=== PATIENT | male | born 1955 | race Caucasian/White ===

== ENCOUNTER 2021-07-19 17:35 | Inpatient (IN) | payer OTHER ==
[~2021-07-19] VITALS: Ht 180.3 cm; Wt 157.4 kg
[~2021-07-19 17:35] MED LIST: ACET-10509 PO; CARV25TA PO; IBUP-81 PO; [UNRECOGNIZED DRUG - CODE] PO
[2021-07-19 17:46] VITALS: BP 143/95
--- NOTE | 2021-07-19 17:55 | NUR ---
PATIENT ASSISTED TO BED 09 WITH HOME WHEELCHAIR.
--- NOTE | 2021-07-19 18:02 | NUR ---
WALKED BLOOD SAMPLES TO LAB
--- NOTE | 2021-07-19 18:17 | NUR ---
DR BROWN AT BEDSIDE EVALUATING PT
[2021-07-19] MEDS ORDERED: ASPI-1822 PO (18:33)
[2021-07-19] MEDS ORDERED: ATOR20TA PO (18:33)
[2021-07-19] MEDS ORDERED: FEBU40TA PO (18:33)
--- NOTE | 2021-07-19 18:44 | NUR ---
Kaylee arita in ED - 07/19/21 at 1845 by MNAGNESMD UPDATED MEDS AND HISTORY OF PT
[2021-07-19] MEDS ORDERED: NACL 0.9% 1,000 ML IV ONE (18:45)
--- NOTE | 2021-07-19 18:45 | NUR ---
UPDATED MEDS AND HISTORY OF PT, GOUT, HIGH CHOLESTEROL, PRE-DIABETES, HYPERTENSION
[2021-07-19] MEDS ORDERED: cefTRIAXone 1,000 MG VIAL ONE (18:50)
--- NOTE | 2021-07-19 18:53 | NUR ---
BEAR ZUNIGA SWAB COLLECTED, WALKED TO LAB AND HANDED TO CPT. MATHIEU
[2021-07-19 19:18] LABS: BASOPHILS % (AUTO) 0.7 % (0.0-2.0); EOSINOPHILS # (AUTO) 0.1 K/uL (0-0.4); EOSINOPHILS % (AUTO) 1.8 % (0.0-4.0); HEMOGLOBIN 14.1 g/dL (12.0-18.0); LYMPHOCYTES # (AUTO) 1.7 K/uL (2.0-11.5); LYMPHOCYTES % (AUTO) 26.4 % (20.5-51.1); MEAN CORPUSCULAR HEMOGLOBIN 29 pg (27-31); MEAN CORPUSCULAR HGB CONC 34 g/dL (33-37); MEAN CORPUSCULAR VOLUME 87.7 fL (80-94); MONOCYTES # (AUTO) 0.7 K/uL (0.8-1.0); MONOCYTES % (AUTO) 10.5 % (1.7-9.3); NEUTROPHILS % (AUTO) 60.6 % (42.2-75.2); PLATELET COUNT (AUTO) 164 K/uL (140-450); RED BLOOD CELL COUNT(AUTO) 4.79 MIL/uL (4.20-6.10); WHITE BLOOD COUNT (AUTO) 6.6 K/uL (4.8-10.8)
--- NOTE | 2021-07-19 19:22 | NUR ---
REPORT AND TRANSFER OF CARE ENDORSED TO TEENA WILLIS.
[2021-07-19 19:40] LABS: ALBUMIN 3.2 g/dL (3.4-5.0); ANION GAP 11.6 (8-16); CARBON DIOXIDE 25.4 mmol/L (21-32); CREATININE 2.2 mg/dL (0.6-1.3); TOTAL BILIRUBIN 0.7 mg/dL (0.0-1.0)
--- NOTE | 2021-07-19 21:50 | NUR ---
Patient will be admitted to care of DR LUZ. Admited to Med/Surg. Will go to room 116. Belongings list completed. Report to TEENA COKER.
[2021-07-19 22:00] VITALS: BP 170/77
--- NOTE | 2021-07-19 22:00 | NUR ---
GET REPORT FROM ER NURSE LAZARO, PATIENT IS ALERT AND ORIENTED X4, NO ANY COMPLAIN OF SHORTNESS OF BREATH NOTED, CALL LIGHT IS WITHIN THE REACH WILL CONTINUE TO MONITOR PATIENT.
[2021-07-19] MEDS ORDERED: PIPERACILLIN/TAZOBACTAM 3.375 GM VIAL IV ONE (22:27)
[2021-07-19] MEDS: PIPERACILLIN/TAZOBACTAM 3.375 GM in DEXTROSE 5% 50 ML IV SCH (22:51)
--- NOTE | 2021-07-20 01:30 | NUR ---
PATIENT IS LYING ON BED , PATIENT BP : 172/61. OK : 67, MASSAGED DR SUKH FERNANDEZ PT BLOOD PRESSURE MEDS , WAITING FOR DR VELAZQUEZ, CALL LIGHT IS WITHIN THE REACH ,WILL CONTINUE TO MONITOR PATIENT.
--- NOTE | 2021-07-20 02:30 | NUR ---
ASSESS/ MEASURE WOUND DRESSING CHANGED WITH NURSE LAVINIA,
--- NOTE | 2021-07-20 02:53 | NUR ---
RE CHECKED PATIENT BLOOD PRESSURE IS 166/68. MO: 88. MASSAGED DOCTOR AGAIN WAITING FOR DOCTOR RESPONSE , PATIENT IS ALERT AND ORIENTED, NO ANY COMPLAIN OF CHEST PAIN OR SHORTNESS OF BREATH AT THIS TIME. CALL LIGHT IS WITHIN THE REACH WILL CONTINUE TO MONITOR.
[2021-07-20 04:00] VITALS: BP 151/74
[2021-07-20] MEDS ORDERED: PIPERACILLIN/TAZOBACTAM 3.375 GM VIAL IV ONE (04:08)
--- NOTE | 2021-07-20 04:21 | NUR ---
PATIENT IS LYING ON BED , NO ANY COMPLAIN OF SOB AT THIS TIME , BP: 151/77. PA: 74 , STILL WAITING FOR DR RESPONSE ABOUT PAIN MEDS AND BLOOD PRESSURE MEDS , CALL LIGHT IS WITHIN THE REACH ,WILL CONTINUE TO MONITOR PATIENT.
[2021-07-20] MEDS: PIPERACILLIN/TAZOBACTAM 3.375 GM in DEXTROSE 5% 50 ML IV SCH ×3 (04:33→23:08)
[2021-07-20] MEDS: HYDROcodone/APAP 5/325 MG 1 TAB TAB PO PRN ×2 (06:32→12:41)
--- NOTE | 2021-07-20 06:36 | NUR ---
PATIENT IS COMPLAINING OF PAIN 6/10 AT RIGHT KNEE, NORCO 5/325 MG PRN FOR MODERATE PAIN IS GIVEN PER DR ORDER , WILL RE ASSESS PAIN LAVAL, CALL LIGHT IS WITHIN THE REACH ,WILL CONTINUE TO MONITOR PATIENT.
--- NOTE | 2021-07-20 07:32 | NUR ---
GAVE REPORT TO MORNING NURSE SIMON, PATIENT IS STABLE.
--- NOTE | 2021-07-20 07:33 | NUR ---
RECEIVED REPORT FROM DIVISION CHIEF NURSE FOR CONTINUITY OF CARE. PT IS IN BED SLEEPING AT THIS TIME. RESPIRATIONS ARE EVEN AND UNLABORED ON ROOM AIR. NO SIGNS OF DISTRESS NOTED. ABD IS NONTENDER, NONDISTENDED WITH BOWEL SOUNDS PRESENT. PT HAS IV TO R AC 18G SALINE LOCK. CALL LIGHT WITHIN REACH. ALL SAFETY MEASURES IN PLACE. WILL CONTINUE TO MONITOR.
[2021-07-20 08:00] VITALS: BP 143/72
--- NOTE | 2021-07-20 08:17 | NUR ---
PATIENT HAS BEEN SCREENED AND CATEGORIZED HIGH NUTRITION RISK. PATIENT WILL BE SEEN WITHIN 1-2 DAYS OF ADMISSION. / RECEIVED CONSULT FOR PRESSURE INJURY PASCALE [address]
--- NOTE | 2021-07-20 10:50 | NUR ---
PT. REFUSES WOUND CARE CONSULT. PER PT." AGAIN? DOCTOR JUST PUT THE DRESSING." RLE DRESSING DRY CLEAN AND WILL CONTINUE TO FOLLOW PODIATRY'S ORDER.
--- NOTE | 2021-07-20 11:03 | NUR ---
DID ROUNDS ON PT. PT IN BED RESTING AT THIS TIME. RESPIRATIONS ARE EVEN AND UNLABORED. NO SIGNS OF DISTRESS NOTED. WILL CONTINUE TO MONITOR.
--- NOTE | 2021-07-20 12:14 | NUR ---
DC PLANNING: THE PATIENT PRESENTED FROM HOME TO THE ED WITH C/O RLE PAIN AND LESIONS X 2 DAYS. H/O HTN, PREDIABETES AND CKD. ORDERS FOR ID AND SRG CONSULT, ROCEPHIN AND ZYVOX IV. CM SPOKE WITH THE PATIENT AT BEDSIDE AND CONFIRMED HIS ADDRESS AND PHONE NUMBER. HE IS WC CONFINED AND IS ASSISTED WITH EVERYTHING INCLUDING TRANSPORT BY HIS SISTER AURA WHO IS ALSO HIS [facility] WORKER. HE LIVES IN AN APARTMENT WITH HIS MOTHER AND SISTER AND HAS DME OF WC, FWW AND 3 IN 1. HE HAS BEEN WC BOUND FOR ABOUT 7 YEARS AND HAD HOME HEALTH ABOUT 2YEARS AGO. HE HAS BEEN AT [facility] AND ANOTHER SNF IN [place] THAT HE CAN'T REMEMBER THE NAME OF. HE DID NOT WANT ME TO CALL HIS SISTER AURA TO GET MORE DETAILS HE WAS VERY SLEEPY. HE IS NOT WILLING TO GO TO A SNF UPON DISCHARGE BUT IS OK WITH HOME HEALTH. KHALIDA WILL FOLLOW. Addendum: 07/20/21 at 1225 by Viridiana Mg CM Amended: Links added. Addendum: 07/22/21 at 1156 by Viridiana Mg CM DC PLANNING: KHALIDA SPOKE WITH THE PATIENT AT BEDSIDE REGARDING POTENTIAL SNF PLACEMENT FOR IV ABX AND WOUND CARE, PATIENT NOW STATES HE'S IN AGREEMENT WITH GOING TO SNF AND ASKED THAT CM SPEAK WITH HIS SISTER/CAREGIVER AURA. CM SPOKE WITH AURA BY PHONE, ASKED THAT PATIENT BE REFERRED TO [facility]. CLINICAL PACKET SENT TO [facility], CM MET WITH PATIENT AT BEDSIDE AND REVIEWED THE IMPORTANT MESSAGE FROM MEDICARE. PATIENT SIGNED THE FORM, COPY GIVEN TO PATIENT, ORIGINAL PLACED IN CHART. KHALIDA WILL FOLLOW. Addendum: 07/22/21 at 1434 by Viridiana Mg CM DC PLANNING: PATIENT ACCEPTED TO [facility], ROOM 39A, DR ERNST TO FOLLOW. HE WILL BE PICKED UP TOMORROW, 07/23 AT 1600 BY [facility] ([phone]). NUMBER TO CALL REPORT IS [phone]. KHALIDA SPOKE WITH THE PATIENT AT BEDSIDE TO LET HIM KNOW AND ALSO SPOKE WITH HIS SISTER AURA. KHALIDA WILL FOLLOW.
[2021-07-20] MEDS ORDERED: hydrALAZINE 20 MG/ML VIAL IVP PRN (13:35)
--- NOTE | 2021-07-20 13:38 | NUR ---
07/20/21 RD INITIAL ASSESSMENT COMPLETED PLEASE REFER TO NUTRITION ASSESSMENT UNDER CARE ACTIVITY FOR ESTIMATED NUTRITIONAL NEEDS. [facility]. [facility] TOL[facility] 2. RECOMMEND [place] BID PER RD PROTOCOL 3. RD TO FOLLOW-UP 3-5 DAYS, MODERATE RISK PASCALE [address]
--- NOTE | 2021-07-20 14:12 | NUR ---
IV ANTIBIOTIC ADMINISTERED BY TEENA CHAUDHARY. WILL CONTINUE TO MONITOR.
[2021-07-20 16:00] VITALS: BP 147/84
--- NOTE | 2021-07-20 17:12 | NUR ---
ASSISTED PT WITH URINAL USAGE AND REPOSITIONING. WILL CONTINUE TO MONITOR.
--- NOTE | 2021-07-20 19:02 | NUR ---
ENDORSED PT TO WALLPAPERER NURSE FOR CONTINUITY OF CARE. ALL NEEDS MET THROUGHOUT SHIFT. PT IS STABLE.
--- NOTE | 2021-07-20 19:35 | NUR ---
RECEIVED PT FROM AM NURSE FOR CONTINUITY OF CARE. PT IS STABLE
[2021-07-20] MEDS: carvediloL 12.5 MG TAB PO SCH (21:00)
--- NOTE | 2021-07-21 | NUR ---
RAC IV CAME OFF, INSERTED NEW IV ON LEFT HAND 22G,TOLERATED WELL.
[2021-07-21] MEDS ORDERED: VANCOMYCIN PER PHARMACY MC PRN (01:20)
[2021-07-21] MEDS ORDERED: VANCOMYCIN 1GM/DEXT 5% PREMIX 400 ML IV SCH (01:35)
[2021-07-21] MEDS: HYDROcodone/APAP 5/325 MG 1 TAB TAB PO PRN ×3 (02:29→20:56)
--- NOTE | 2021-07-21 03:00 | NUR ---
PATIENT ASLEEP,RESPIRATIONS EVEN AND UNLABORED,NO DISTRESS NOTED.
--- NOTE | 2021-07-21 03:34 | NUR ---
RECEIVED BEDSIDE REPORT FROM DAY SHIFT NURSE FOR CONTINUITY OF PATIENT CARE.
[2021-07-21 04:00] VITALS: BP 138/76
--- NOTE | 2021-07-21 06:06 | NUR ---
ASSISTED PT TO BATHROOMAND BACK TO BED, NO PAIN OR SOB NOTED.
[2021-07-21 07:09] LABS: ANION GAP 13.8 (8-16); CREATININE 2.1 mg/dL (0.6-1.3); POTASSIUM 3.8 mmol/L (3.5-5.1)
[2021-07-21 07:12] LABS: BASOPHILS % (AUTO) 0.5 % (0.0-2.0); EOSINOPHILS # (AUTO) 0.1 K/uL (0-0.4); EOSINOPHILS % (AUTO) 1.5 % (0.0-4.0); HEMATOCRIT 41.3 % (36-52); HEMOGLOBIN 13.9 g/dL (12.0-18.0); LYMPHOCYTES # (AUTO) 1.5 K/uL (2.0-11.5); LYMPHOCYTES % (AUTO) 22.2 % (20.5-51.1); MEAN CORPUSCULAR HEMOGLOBIN 30 pg (27-31); MEAN CORPUSCULAR HGB CONC 34 g/dL (33-37); MEAN CORPUSCULAR VOLUME 87.5 fL (80-94); MONOCYTES # (AUTO) 0.7 K/uL (0.8-1.0); MONOCYTES % (AUTO) 10.3 % (1.7-9.3); NEUTROPHILS # (AUTO) 4.5 K/uL (1.8-7.7); NEUTROPHILS % (AUTO) 65.5 % (42.2-75.2); PLATELET COUNT (AUTO) 168 K/uL (140-450); RED BLOOD CELL COUNT(AUTO) 4.72 MIL/uL (4.20-6.10); RED CELL DISTRIBUTION WIDTH 15.1 % (11.6-13.7); WHITE BLOOD COUNT (AUTO) 6.9 K/uL (4.8-10.8)
[2021-07-21 07:23] LABS: MAGNESIUM 1.8 mg/dL (1.8-2.4); PHOSPHORUS 2.4 mg/dL (2.5-4.9)
--- NOTE | 2021-07-21 07:31 | NUR ---
ENDORSED PT TO AM NURSE FOR CONTINUITY OF CARE.PT IS STABLE
--- NOTE | 2021-07-21 07:32 | NUR ---
RECEIVED REPORT FROM BUSINESS UNIT DIRECTOR NURSE FOR CONTINUITY OF CARE. PT IS IN BED SLEEPING AT THIS TIME. RESPIRATIONS ARE EVEN AND UNLABORED ON ROOM AIR. NO SIGNS OF DISTRESS NOTED. PT IS ON CCHO DIET, ABD IS NONTENDER, NONDISTENDED WITH BOWEL SOUNDS PRESENT. PT HAS IV TO L HAND 22G SALINE LOCK. CALL LIGHT WITHIN REACH. ALL SAFETY MEASURES IN PLACE. WILL CONTINUE TO MONITOR.
[2021-07-21 08:00] VITALS: BP 112/64
[2021-07-21] MEDS: VANCOMYCIN 1,000 MG in DEXTROSE 5% 250 ML IV SCH ×2 (09:00→20:29)
[2021-07-21] MEDS: carvediloL 12.5 MG TAB PO SCH ×2 (09:19→20:29)
--- NOTE | 2021-07-21 09:20 | NUR ---
ADMINISTERED ALL SCHEDULED MEDICATIONS. EDUCATED PT ON MEDS ADMINISTERED. PT VERBALIZED UNDERSTANDING. WILL CONTINUE TO MONITOR.
--- NOTE | 2021-07-21 12:37 | NUR ---
PT STATES IV WAS ACCIDENTALLY PULLED OUT. WILL ATTEMPT NEW IV ACCESS. WILL CONTINUE TO MONITOR.
--- NOTE | 2021-07-21 13:12 | NUR ---
URINE SPECIMEN COLLECTED. SENT TO LAB.
--- NOTE | 2021-07-21 14:45 | NUR ---
ENDORSED PT TO TEENA YUNG FOR CONTINUITY OF CARE.
--- NOTE | 2021-07-21 15:41 | NUR ---
DC PLANNING PATIENT IS A 65-YEAR-OLD MALE ADMITTED ON 07/19/2021 AT [facility] DUE TO WORSENING IN DRAINAGE AND SWELLING OF RLE WOUNDS. PATIENT HAS HX. OF CHRONIC KIDNEY DISEASE, AND PRE-DIABETIC. SW MET WITH PATIENT AT BEDSIDE TO DISCUSS AND GATHER PATIENT'S COLLATERAL INFORMATION. PATIENT REPORTED LIVING AT HOME WITH HIS AND STATED HAVING PLENTY OF SUPPORT FROM HER FAMILY. PATIENT REPORTED HAVING ASSISTANCE AT HOME AND THAT HIS SISTER IS HIS IHSS CAREGIVER SINCE HE IS UNABLE TO WALK AND BE INDEPENDENT AT HOME. PATIENT REPORTED NOT HAVING ADVANCE DIRECTIVES AND WAS NOT INTERESTED ON GETTING INFORMATION PACKET PROVIDED BY SW AT THE TIME OF VISIT. PATIENT REPORTED HAVING A WHEELCHAIR AND A WALKER AT HOME HIS ONLY DME AND NOT HAVING ANY ISSUES WITH GETTING OR TAKING ANY MEDICATIONS. SW EXPLAINED TO PATIENT THE NEED TO FOLLOW UP WITH AN APPOINTMENT WITHIN 5-7 DAYS WITH PCP AFTER DC, PATIENT AGREED AND STATED THAT HIS SISTER AURA WILL BE MAKING HIS APPOINMENT FOR THE FOLLOW UP. PATIENT STATED THAT HIS SISTER WILL BE ASSISTING HIM WITH TRANSPORTATION BACK HOME WHEN HE IS READY FOR DISCHARGE. SW WILL FOLLOW UP WITH PATIENT NEEDED.
[2021-07-21 15:47] LABS: APPEARANCE,URINE CLEAR (CLEAR); BILIRUBIN,URINE 1+ (NEGATIVE); BLOOD, URINE NEGATIVE (NEGATIVE); LEUKOCYTE ESTERASE ,URINE NEGATIVE (NEGATIVE); NITRITE, URINE NEGATIVE (NEGATIVE); UGLUCOSE NEGATIVE (NEGATIVE)
[2021-07-21 15:53] LABS: COLOR,URINE AMBER (YELLOW)
[2021-07-21 16:00] VITALS: BP 154/76
--- NOTE | 2021-07-21 20:56 | NUR ---
PT TOOK HIS PM MEDS DIRECTED. PT COMPLAINT OF MODERATE PAIN 6/10. ON RIGHT LEG AND REQUEST FOR PAIN PILL. PAIN PILL ADMINISTERED ORDERED.
--- NOTE | 2021-07-21 21:10 | NUR ---
PATIENT'S SISTER, AURA, CALLED TO ASK ABOUT PATIENT. SHE WANTS TO TALK TO DOCTOR. AURA IS ALSO CAREGIVER FOR PATIENT. AURA ALMANZA, PH # [phone]. PATIENT REQUESTED TO CALL HER WHEN MD VISIT PATIENT.
--- NOTE | 2021-07-21 22:00 | NUR ---
PT'S ASLEEP, NO COMPLAINT OF PAIN.
[2021-07-22] VITALS: BP_SYST 127
--- NOTE | 2021-07-22 03:57 | NUR ---
PATIENT IS SLEEPING WELL, IV ON LEFT ARM IS INTACT AND PATENT.
[2021-07-22 07:10] LABS: BASOPHILS % (AUTO) 0.6 % (0.0-2.0); EOSINOPHILS # (AUTO) 0.2 K/uL (0-0.4); EOSINOPHILS % (AUTO) 3.1 % (0.0-4.0); HEMATOCRIT 39.6 % (36-52); HEMOGLOBIN 13.2 g/dL (12.0-18.0); LYMPHOCYTES # (AUTO) 1.5 K/uL (2.0-11.5); LYMPHOCYTES % (AUTO) 23.2 % (20.5-51.1); MEAN CORPUSCULAR HEMOGLOBIN 29 pg (27-31); MEAN CORPUSCULAR HGB CONC 33 g/dL (33-37); MEAN CORPUSCULAR VOLUME 87.8 fL (80-94); MONOCYTES # (AUTO) 0.7 K/uL (0.8-1.0); MONOCYTES % (AUTO) 10.4 % (1.7-9.3); NEUTROPHILS # (AUTO) 4.1 K/uL (1.8-7.7); NEUTROPHILS % (AUTO) 62.7 % (42.2-75.2); PLATELET COUNT (AUTO) 154 K/uL (140-450); RED BLOOD CELL COUNT(AUTO) 4.51 MIL/uL (4.20-6.10); RED CELL DISTRIBUTION WIDTH 14.7 % (11.6-13.7); WHITE BLOOD COUNT (AUTO) 6.5 K/uL (4.8-10.8)
--- NOTE | 2021-07-22 07:15 | NUR ---
ENDORSE PATIENT TO DAY SHIFT NURSE, AGA, FOR CONTINUITY OF CARE.
[2021-07-22 07:39] LABS: MAGNESIUM 1.8 mg/dL (1.8-2.4); PHOSPHORUS 2.9 mg/dL (2.5-4.9)
[2021-07-22 07:57] LABS: ANION GAP 12.7 (8-16); CARBON DIOXIDE 26.1 mmol/L (21-32); CREATININE 2.1 mg/dL (0.6-1.3); POTASSIUM 3.8 mmol/L (3.5-5.1)
[2021-07-22] MEDS: carvediloL 12.5 MG TAB PO SCH ×2 (08:15→20:24)
[2021-07-22] MEDS: FUROSEMIDE 40 MG/4 ML VIAL IVP SCH (09:41)
[2021-07-22] MEDS: VANCOMYCIN 1,000 MG in DEXTROSE 5% 250 ML IV SCH ×2 (09:41→20:27)
[2021-07-22 10:26] VITALS: BP 160/72
[2021-07-22 16:21] VITALS: BP 129/62
[2021-07-23] VITALS: BP 137/68
--- NOTE | 2021-07-23 01:45 | NUR ---
IV SITE ON LEFT FOREARM DISLODGED AND LEAKING, PT COMPLAIN OF PAIN WHEN FLUSHED. DISCONTINUE IV HEPLOCK ON LEFT FOREARM. INSERTED A NEW IV SITE ON RIGHT INNER WRIST WITH GOOD BLOOD RETURN. PATIENT DENIED OF PAIN. -MNUREE
[2021-07-23] MEDS: HYDROcodone/APAP 5/325 MG 1 TAB TAB PO PRN (01:48)
--- NOTE | 2021-07-23 01:48 | NUR ---
PT COMPLAINTS OF SHARP PAIN ON BILATERAL LOWER EXTREMITIES OF 5/10. PAIN MEDICATION ADMINISTERED ORDER.
[2021-07-23] MEDS ORDERED: ceFAZolin 1,000 MG VIAL ONE (04:09)
--- NOTE | 2021-07-23 07:20 | NUR ---
RECEIVED REPORT FROM RETURNER NURSE FOR CONTINUITY OF CARE. PT SITTING ON THE EDGE OF THE BED, AWAKE. BREATHING SYMMETRICAL ON ROOM AIR. NOTED WITH DRESSING ON RIGHT LEG, NO NOTED BLEEDING OR DRAINAGE AT THIS TIME. WITH RFA 20G ON SALINE LOCK. CALL LIGHT WITHIN REACH. ALL SAFETY MEASURES IN PLACE.
--- NOTE | 2021-07-23 07:24 | NUR ---
PT IS AWAKE, ALERT AND RESPONSIVE. IS STABLE. ENDORSED TO DAY SHIFT NURSE FOR CONTINUITY OF CARE. - MNUREE
[2021-07-23 08:00] VITALS: BP 155/79
[2021-07-23] MEDS: carvediloL 12.5 MG TAB PO SCH (09:07)
[2021-07-23] MEDS: FUROSEMIDE 40 MG/4 ML VIAL IVP SCH (09:08)
--- NOTE | 2021-07-23 09:29 | NUR ---
SCHEDULED AM MEDICATIONS GIVEN ORDERED.
[2021-07-23] MEDS ORDERED: ANCEF IV (09:42)
[2021-07-23] MEDS ORDERED: FURO-570 PO (09:42)
[2021-07-23] MEDS ORDERED: ATOR20TA PO (09:42)
--- NOTE | 2021-07-23 11:57 | NUR ---
PT AWAKE IN BED, ALERT. BREATHING SYMMETRICAL ON ROOM AIR. DRESSING ON RIGHT LE CHANGED NOTED WITH SEROSANGUINOUS DRAINAGE IN SMALL AMOUNT, PICTURES TAKEN. AFTERWARDS ASSISTED PT TO THE RESTROOM, PT AMBULATING USING WALKER WITH ASSIST. CALL LIGHT WITHIN REACH. ALL SAFETY MEASURES IN PLACE
--- NOTE | 2021-07-23 12:56 | NUR ---
PT FOR [place] [facility] CALLED AND LEFT MESSAGE TO AURA (SISTER)
--- NOTE | 2021-07-23 13:00 | NUR ---
CALLED [facility] AND SPOKE WITH MATHIEU, MADE HER AWARE THAT PT WAS ACCEPTED SINCE YESTERDAY GOING TO ROOM 39A UNDER DR ERNST. STATED SHE WILL ASK FIRST THEIR DON AND WILL CALL US BACK.
--- NOTE | 2021-07-23 13:02 | NUR ---
SISTER AURA CALLED BACK AND MADE AWARE OF PT'S DISCHARGE [place] [facility].
--- NOTE | 2021-07-23 14:06 | NUR ---
CALLED [facility], SPOKE WITH MATHIEU DICKINSON AND GAVE REPORT.
--- NOTE | 2021-07-23 16:03 | NUR ---
PT DIS[place] [facility] [place] BELONG[facility] AND PAPERWORKS [facility]IA [facility], PT IN STABLE CONDITION
== END 2021-07-23 16:05 | DRG 602 ==
LOC: MED 17:35 → MTU 20:25
PROVIDERS: ADMIT Family Medicine; ATTEND Family Medicine
DX: L03.115 Cellulitis of right lower limb (principal); N17.0 Acute kidney failure with tubular necrosis; Z68.42 Body mass index [BMI] 45.0-49.9, adult; E11.622 Type 2 diabetes mellitus with other skin ulcer; E78.5 Hyperlipidemia, unspecified; I12.9 Hypertensive chronic kidney disease with stage 1 through stage 4 chronic kidney disease, or unspecified chronic kidney disease; E11.22 Type 2 diabetes mellitus with diabetic chronic kidney disease; Z20.822 Contact with and (suspected) exposure to COVID-19; E66.01 Morbid (severe) obesity due to excess calories; L89.892 Pressure ulcer of other site, stage 2; I87.2 Venous insufficiency (chronic) (peripheral); Z60.2 Problems related to living alone; B35.1 Tinea unguium; E11.51 Type 2 diabetes mellitus with diabetic peripheral angiopathy without gangrene; N18.31 Chronic kidney disease, stage 3a; L03.116 Cellulitis of left lower limb; Z87.891 Personal history of nicotine dependence; Z90.49 Acquired absence of other specified parts of digestive tract
CPT/HCPCS: 36415; 73590; 76770; 80048; 80053; 80202; 81003; 83605; 83735; 84100; 84300; 85025; 87040; 87070; 87075; 87081; 87186; 87205; 93925; 93970; 96365; 99285; J0690; J0696; J1940; J2543; J3370; J7030; J7060; Q0092